=== PATIENT | female | born 1995 | race Caucasian/White ===

== ENCOUNTER 2023-11-14 11:43 | Emergency (ER) | payer SELFPAY ==
[~2023-11-14] VITALS: Ht 172.7 cm; Wt 73.0 kg
[2023-11-14 11:46] VITALS: O2SAT 98
[2023-11-14 12:11] LABS: BASOPHILS % 0.3 % (0.0-2.0); EOSINOPHILS % 0.2 % (0.0-5.0); HEMATOCRIT. 38.9 % (36.0-48.0); HEMOGLOBIN. 12.9 g/dL (12.0-16.0); LYMPHOCYTES % 21.6 % (20.0-50.0); MEAN CORPUSCULAR HGB CONC 33.2 g/dL (31.0-37.0); MEAN CORPUSCULAR VOLUME 90.4 fL (81.0-99.0); MEAN PLATELET VOLUME 9.4 fl (7.4-10.4); MONOCYTES % 4.1 % (2.0-8.0); NEUTROPHILS % 73.8 % (40.0-76.0); PLATELET 244 x1000/uL (130-400); RED BLOOD CELL COUNT 4.31 mill/uL (4.2-5.4); RED CELL DISTRIBUTION WIDTH 12.9 % (11.6-14.6); WHITE BLOOD COUNT 11.7 x1000/uL (4.5-11.0)
[2023-11-14 12:13] LABS: CARBON DIOXIDE 24 mEq/L (21-32); CHLORIDE 106 mEq/L (98-107); POTASSIUM 4.1 mEq/L (3.5-5.1); SODIUM 137 mEq/L (136-145)
[2023-11-14 12:14] LABS: CALCIUM 9.7 mg/dL (8.7-10.4)
[2023-11-14 12:17] VITALS: TEMP 97.8
[2023-11-14 12:19] LABS: CREATININE 0.8 mg/dL (0.6-1.0); GLUCOSE 163 mg/dL (70-105); UREA NITROGEN BLOOD 8 mg/dL (9-23)
[2023-11-14 12:20] LABS: ALANINE AMINOTRANSFERASE 13 IU/L (10-49)
[2023-11-14 12:21] LABS: ALBUMIN 4.6 g/dL (3.2-4.8); ASPARTATE AMINOTRANSFERASE 15 IU/L (<34); BILIRUBIN TOTAL 0.7 mg/dL (0.1-1.0); ETHANOL BLOOD < 10 mg/dL (<10); PROTEIN TOTAL 7.4 g/dL (6.0-8.3)
[2023-11-14] MEDS: SODIUM CHLORIDE 0.9% 1,000 ML IV ONE (12:51)
[2023-11-14 12:56] VITALS: BP 108/57; PULSE 79; RESP 20
[2023-11-14] MEDS: KETOROLAC 30MG/ML VIAL IV STA (12:56)
[2023-11-14] MEDS: METOCLOPRAMIDE HCL 10MG/2ML VIAL IV ONE (12:57)
== END 2023-11-14 14:24 | disposition home or self-care (01) ==
LOC: ER 12:56
DX: R56.9 Unspecified convulsions (principal); R11.2 Nausea with vomiting, unspecified; R51.9 Headache, unspecified
CPT/HCPCS: 80053; 80320; 85025; 36415; 70450; 96361; 96374; 96375; 99285; J1885; J2765; J7030; Z7610; G0480